=== PATIENT | female | born 1965 | race Caucasian/White ===

== ENCOUNTER 2021-02-25 09:41 | Outpatient (CLI) | payer MEDICARE, OTHER, SELFPAY ==
--- NOTE | ~2021-02-25 | MR_ITS ---
EXAMINATION: MR hip LT wo con DATE: 02/25/2021 11:24 INDICATION: Left hip pain TECHNIQUE: Magnetic resonance imaging (MRI) of the left hip was performed without intravenous contra st. Sequences included full-field axial PD-weighted FS FSE and T1-weighted FSE, coronal of the pelvis with PD-weighted FS FSE, small field of view of the left hip with axial PD-weighted FS FSE, sagitta l PD-weighted FS FSE and coronal PD weighted FS FSE. Additional radial T1-weighted FGR oriented ortho gonal to the acetabular rim were obtained for evaluation of the labrum. COMPARISON: None FINDINGS: Bones/labrum/cartilage: Alignment is normal. Large bone island at the left lesser trochanter. Marrow signal is otherwise norm al with no fracture, avascular necrosis or pathologic marrow replacing process. Small delaminating te ar at the chondral labral junction at the superolateral left acetabular labrum. Articular cartilage a ppears normal. Fluid: Symmetric physiologic amount of fluid within both hip joints. Minimal fluid along the anterior facet of the right greater trochanter consistent with mild right gluteus minimus bursitis. Soft tissues: Normal and symmetric muscle bulk and signal in the pelvis and visualized proximal thighs. The iliopso as, gluteal and proximal hamstring tendons are normal. 1.8 cm left adnexal cyst. Limited evaluation o f visceral organs of the pelvis is otherwise unremarkable. No pathologically enlarged pelvic/inguina l lymphadenopathy. IMPRESSION: 1. Small delaminating tear at the chondral labral junction of the superolateral left acetabular labru m. Reviewed, dictated and finalized at location A. IMPRESSION: 1. Small delaminating tear at the chondral labral junction of the superolateral left acetabular labrum.
--- NOTE | ~2021-02-25 | MR_ITS ---
EXAMINATION: MR lumbar spine wo con DATE: 02/25/2021 11:24 INDICATION: Lumbar disc disease with sciatica. TECHNIQUE: Magnetic resonance imaging (MRI) of the lumbar spine was performed without intravenous con trast. Sequences included sagittal T2-weighted FSE, sagittal T2-weighted FS FSE, sagittal T1-weighted FSE, and axial T2-weighted FSE. COMPARISON: Lumbar spine MRI 10/17/2003 FINDINGS: There is 3 degrees dextrocurvature of lumbar spine. There is 3 mm retrolisthesis of L3 on L 4 and L4 on L5. Vertebral body heights are normal. There is mildly decreased disc height at L2-L3 and L3-L4 and moderately decreased disc height at L4-L5. The distal spinal cord signal intensity is norm al. The conus medullaris is at L2. The following disc levels are specifically discussed: L1-L2: The disc does not extend beyond the endplate margin. There is no facet joint osteoarthritis. T here is no neural foraminal stenosis. There is no central canal stenosis. L2-L3: The disc is bulging. There is mild left facet joint osteoarthritis. There is mild bilateral ne ural foraminal stenosis. There is mild central canal stenosis. L3-L4: The disc is bulging. There is mild bilateral facet joint osteoarthritis. There is mild bilater al neural foraminal stenosis. There is mild central canal stenosis. L4-L5: The disc is bulging and has an annular fissure. There is mild bilateral facet joint osteoarthr itis. There is mild bilateral neural foraminal stenosis. There is mild central canal stenosis. L5-S1: The disc is bulging. There is severe right and moderate left facet joint osteoarthritis. There is mild bilateral neural foraminal stenosis. There is mild central canal stenosis. IMPRESSION: 1. Moderate lumbar spondylosis, worsened from 10/17/2003. Reviewed, dictated and finalized at location A.
== END 2021-02-25 09:42 | disposition home or self-care (01) ==
LOC: ANHIMG 09:52
PROVIDERS: PCP Family Medicine; Visit Provider Family Medicine
DX: M47.896 Other spondylosis, lumbar region (principal)
CPT/HCPCS: 72148; 73721

== ENCOUNTER → 2022-08-25 10:54 | Outpatient (CLI) | payer MEDICARE, OTHER, SELFPAY ==
--- NOTE | ~2022-08-25 | XR_ITS ---
Clinical Indication: Cough PA and lateral views of the chest: Comparison: 08/15/2015 Findings: The lungs are clear, without evidence of focal consolidation or pleural effusion. Cardiome diastinal silhouette is within normal limits. Bones and soft tissues are unremarkable. Impression: Normal chest. Reviewed, dictated and finalized at [facility]. Impression: Normal chest.
== END ==
PROVIDERS: PCP Family Medicine; Visit Provider Family Medicine
DX: R05.9 Cough, unspecified (principal); I10 Essential (primary) hypertension
CPT/HCPCS: 71046

== ENCOUNTER 2023-01-18 10:49 | Outpatient (CLI) | payer MEDICARE, OTHER, SELFPAY ==
--- NOTE | ~2023-01-18 | XR_ITS ---
EXAMINATION: XR abdomen/kub 1V DATE: 01/18/2023 11:05 INDICATION: Kidney stone. TECHNIQUE: A supine view of the abdomen on 2 radiographs was obtained. COMPARISON: Abdomen radiographs 08/27/2014, CT abdomen and pelvis 02/08/2017 FINDINGS: There are no dilated loops of bowel. Surgical clips in the right upper quadrant are likely from cholecystectomy. There are phleboliths in the pelvis. IMPRESSION: 1. No visible urolithiasis. Reviewed, dictated and finalized at location A. IMPRESSION: 1. No visible urolithiasis.
--- NOTE | ~2023-01-18 | US_ITS ---
EXAMINATION: US renal BI DATE: 01/18/2023 11:33 INDICATION: Nephrolithiasis TECHNIQUE: Multiple ultrasound grayscale images of the kidneys were obtained. COMPARISON: None. FINDINGS: The right kidney measures 9.8 x 4.6 x 4.8 cm. The left kidney measures 10.6 x 5.3 x 5.2 cm. The kidne ys demonstrate normal echogenicity. There is no hydronephrosis in either kidney. No stones identifie d. The bladder is normal with bilateral ureteral jets visualized on color Doppler. IMPRESSION: 1. Normal kidneys without hydronephrosis. Reviewed, dictated and finalized at location A.
== END 2023-01-18 10:50 | disposition home or self-care (01) ==
PROVIDERS: PCP Family Medicine; Visit Provider Nurse Practitioner
DX: N20.0 Calculus of kidney (principal)
CPT/HCPCS: 74018; 76775

== ENCOUNTER 2023-05-21 00:24 | Day surgery (SDC) | payer MEDICARE, OTHER, SELFPAY ==
[2023-05-06 11:55] VITALS: BMI 37.2
--- NOTE | 2023-05-19 11:36 | SUR.PREOP ---
Patient called regarding upcoming procedure. Reviewed preop instructions, appointment times, and procedure prep.
[2023-05-21 09:43] VITALS: BP 145/78; PULSE 51; RESP 18; TEMP 36.6; O2SAT 99; BMI 37.8
[2023-05-21] MEDS: LACTATED RINGERS 1,000 ML 150 ML IV CONT (09:54)
--- NOTE | 2023-05-21 09:58 | WPDANESEPPF ---
Anes - Initial Pre Proc Eval Procedure: Operation Date: 05/21/23 10:00 Proposed Procedures p Esophagogastroduodenoscopy - Kaden Woodward MD Date/Time: 05/21/23 09:58 Surgeon: Kaden Woodward MD Pre Op Diagnosis: Idiopathic acute pancreatitis, GERD Patient Data Age: 57 Gender: F Height: 1.52 m Weight: 87.7 kg Last Vital Signs Temp 36.6 C 05/21/23 09:43 Pulse 51 L 05/21/23 09:43 Resp 18 05/21/23 09:43 BP 145/78 H 05/21/23 09:43 Pulse Ox 99 05/21/23 09:43 O2 Del Method Room Air 05/21/23 09:43 Allergies Allergy/AdvReac Type Severity Reaction Status Date / Time naproxen Allergy Unknown Itching Verified 05/21/23 09:41 Home Medications Medication Instructions Recorded Confirmed Type cholestyramine (with sugar) 4 gram 4 ea PO PRN PRN Diarrhea 03/06/21 05/06/23 History oral powder montelukast 10 mg tablet 10 mg PO DAILY 03/06/21 05/06/23 History pantoprazole 40 mg tablet,delayed 40 mg PO QAM 03/06/21 05/06/23 History release benzonatate 200 mg capsule 200 mg PO BID 07/23/22 05/06/23 History diclofenac sodium 1 % topical gel 2 g topical QID 08/25/22 05/06/23 History (Arthritis Pain (diclofenac)) docusate sodium 100 mg capsule 100 mg PO DAILY 08/25/22 05/06/23 History (Stool Softener) meloxicam 15 mg tablet 15 mg PO DAILY 08/25/22 05/06/23 History nadolol 40 mg tablet 40 mg PO DAILY 08/25/22 05/21/23 History albuterol sulfate 90 mcg/actuation 1 inh inhalation Q4H PRN shortness 09/22/22 05/06/23 Rx aerosol inhaler of breath or wheezing #6.7 grams aspirin 81 mg tablet,delayed 81 mg PO DAILY 11/19/22 05/06/23 History release eletriptan 40 mg tablet 40 mg PO ONCE PRN migraine headache 11/19/22 05/06/23 History ergocalciferol (vitamin D2) 1,250 1,250 mcg PO WEEKLY 11/19/22 05/06/23 History mcg (50,000 unit) capsule zolpidem 10 mg tablet 10 mg PO QHS 11/19/22 05/06/23 History amlodipine 10 mg tablet 10 mg PO DAILY #90 tabs 01/12/23 05/06/23 Rx clobetasol 0.05 % topical cream 1 applic topical DAILY #30 grams 02/18/23 05/06/23 Rx triamcinolone acetonide 0.1 % 1 applic topical ONCE #80 grams 02/18/23 05/06/23 Rx topical cream diphenhydramine HCl 25 mg capsule 25 mg PO PRN PRN Allergic Symptoms 05/06/23 05/06/23 History (Benadryl) hydrocodone 5 mg-acetaminophen 325 1 tablet PO HS PRN pain 05/06/23 05/06/23 History mg tablet inulin 2 gram chewable tablet 2 g PO DAILY 05/06/23 05/06/23 History (Fiber Gummies) Patient hx anesthesia problems: none Family hx anesthesia problems: none Results Review: All pre-operative results and documents have been reviewed as part of the pre-operative evaluation. [facility] Past Medical History Medical History Allergic rhinitis, unspecified Arthritis Fibromyalgia Gastro-esophageal reflux disease without esophagitis Granuloma annulare Hypertension IBS (irritable bowel syndrome) Insomnia, unspecified Irregular menstruation, unspecified Irritable bowel syndrome with diarrhea Left buttock pain Lumbar degenerative disc disease Migraine without aura, not intractable, without status migrainosus Obesity, unspecified Plantar fasciitis of right foot Postconcussional syndrome Vitamin D deficiency, unspecified Surgical History Surgical History History of appendectomy History of bunionectomy History of cholecystectomy Family History Family History Other Cerebrovascular accident Diabetes mellitus Family history of Alzheimer's disease Family history of arthritis Family history of lupus erythematosus Family history of malignant neoplasm Family history of migraine headaches Family history of seizure disorder Hypertension Social History Social History Smoking status: Never smoker Second hand tobacco smoke ex
--- NOTE | 2023-05-21 10:12 | PM.HPGS ---
History of Present Illness History of Present Illness Consent: Risks, benefits, and alternatives have been discussed and questions answered. Patient agrees to proceed with procedure. Chief complaint: Idiopathic acute pancreatitis, GERD Narrative: Ivania Meraz is a 57 year old female Presents for EGD. Patient recently seen at [facility] with idiopathic pancreatitis. Because of epigastric pain an EGD is advised. Patient has been maintained on pantoprazole 40mg p.o. daily. Upon holding this medication she has had some dyspepsia and epigastric discomfort. An EGD was requested. Patient is being treated for musculoskeletal disease with diclofenac meloxicam and hydrocortisone. These may also contribute to her discomfort. Family history noncontributory. Review of Systems Review of Systems: Review of systems noncontributory. [facility] Past Medical History Medical History Allergic rhinitis, unspecified Arthritis Fibromyalgia Gastro-esophageal reflux disease without esophagitis Granuloma annulare Hypertension IBS (irritable bowel syndrome) Insomnia, unspecified Irregular menstruation, unspecified Irritable bowel syndrome with diarrhea Left buttock pain Lumbar degenerative disc disease Migraine without aura, not intractable, without status migrainosus Obesity, unspecified Plantar fasciitis of right foot Postconcussional syndrome Vitamin D deficiency, unspecified Surgical History Surgical History History of appendectomy History of bunionectomy History of cholecystectomy Family History Family History Other Cerebrovascular accident Diabetes mellitus Family history of Alzheimer's disease Family history of arthritis Family history of lupus erythematosus Family history of malignant neoplasm Family history of migraine headaches Family history of seizure disorder Hypertension Social History Social History Smoking status: Never smoker Second hand tobacco smoke exposure: No Alcohol intake: never Substance use: current Substance use type: opiates Other substance usage details: hydrocodone-acetaminophen daily hs for pain Lack of Transportation: No Lack of Food: Never True Current Housing: I Have Housing Concerned About Future Housing: No Difficulty Paying Gas/Electric Bills: No Difficulty Paying for Meds: No Currently Unemployed: No Education: Trade/Vocational Certificate Difficulty w/ Childcare or Family Care: No Living arrangements: with family Occupation/Education: unemployed Gender identity (if verbalized by the patient): Female Sexual Orientation (if Verbalized by the Patient): Straight or Heterosexual Spiritual care concerns: No Meds Home Medications and Allergies Home Medications Medication Instructions Recorded Confirmed Type cholestyramine (with sugar) 4 gram 4 ea PO PRN PRN Diarrhea 03/06/21 05/06/23 History oral powder montelukast 10 mg tablet 10 mg PO DAILY 03/06/21 05/06/23 History pantoprazole 40 mg tablet,delayed 40 mg PO QAM 03/06/21 05/06/23 History release benzonatate 200 mg capsule 200 mg PO BID 07/23/22 05/06/23 History diclofenac sodium 1 % topical gel 2 g topical QID 08/25/22 05/06/23 History (Arthritis Pain (diclofenac)) docusate sodium 100 mg capsule 100 mg PO DAILY 08/25/22 05/06/23 History (Stool Softener) meloxicam 15 mg tablet 15 mg PO DAILY 08/25/22 05/06/23 History nadolol 40 mg tablet 40 mg PO DAILY 08/25/22 05/21/23 History albuterol sulfate 90 mcg/actuation 1 inh inhalation Q4H PRN shortness 09/22/22 05/06/23 Rx aerosol inhaler of breath or wheezing #6.7 grams aspirin 81 mg tablet,delayed 81 mg PO DAILY 11/19/22 05/06/23 History release eletriptan 40 mg tablet 40 mg PO ONCE PRN migraine h
--- NOTE | 2023-05-21 10:31 | SUR.OPER ---
INSPECTOR AND CLERK used oral suction during procedure due to excess secretions.
[2023-05-21 10:37] VITALS: BP 84/54; PULSE 55; RESP 17; O2SAT 95
[2023-05-21 10:47] VITALS: BP 103/70; PULSE 53; RESP 15; O2SAT 100
[2023-05-21 11:00] VITALS: BP 117/75; PULSE 50; RESP 15; O2SAT 100
== END 2023-05-21 11:17 | disposition home or self-care (01) ==
PROVIDERS: PCP Family Medicine; Visit Provider Internal Medicine Gastroenterology
PROC: 0DJ08ZZ Inspection of Upper Intestinal Tract, Via Natural or Artificial Opening Endoscopic (ICD-10-PCS; CPT 43235; principal; 2023-05-21 10:00)
DX: D13.1 Benign neoplasm of stomach (principal); K85.00 Idiopathic acute pancreatitis without necrosis or infection; K21.9 Gastro-esophageal reflux disease without esophagitis; I10 Essential (primary) hypertension; E55.9 Vitamin D deficiency, unspecified; M79.7 Fibromyalgia; Z79.891 Long term (current) use of opiate analgesic; E66.9 Obesity, unspecified; Z68.37 Body mass index [BMI] 37.0-37.9, adult; Z79.51 Long term (current) use of inhaled steroids
CPT/HCPCS: 43239; 88305; J2001; J2704; J7120

== ENCOUNTER 2023-07-12 03:18 | Day surgery (SDC) | payer MEDICARE, OTHER, SELFPAY ==
[2023-06-16 15:39] VITALS: BMI 28.1
--- NOTE | 2023-07-09 08:28 | SUR.PREOP ---
Patient called regarding upcoming procedure. Reviewed preop instructions, appointment times, and procedure prep.
--- NOTE | 2023-07-09 15:31 | PM.HPGS ---
History of Present Illness History of Present Illness Consent: Risks, benefits, and alternatives have been discussed and questions answered. Patient agrees to proceed with procedure. Chief complaint: neoplasm screening Narrative: Ivania Meraz is a 57 year old female Who was referred for colon cancer screening. Her last colonoscopy was 7 years ago. Review of Systems Review of Systems: All systems reviewed & are unremarkable except as noted in HPI and below PMFSH Past Medical History Medical History Allergic rhinitis, unspecified Arthritis Fibromyalgia Gastro-esophageal reflux disease without esophagitis Granuloma annulare Hypertension IBS (irritable bowel syndrome) Insomnia, unspecified Irregular menstruation, unspecified Irritable bowel syndrome with diarrhea Left buttock pain Lumbar degenerative disc disease Migraine without aura, not intractable, without status migrainosus Obesity, unspecified Plantar fasciitis of right foot Postconcussional syndrome Vitamin D deficiency, unspecified Surgical History Surgical History History of appendectomy History of bunionectomy History of cholecystectomy Family History Family History Other Cerebrovascular accident Diabetes mellitus Family history of Alzheimer's disease Family history of arthritis Family history of lupus erythematosus Family history of malignant neoplasm Family history of migraine headaches Family history of seizure disorder Hypertension Social History Social History Smoking status: Never smoker Second hand tobacco smoke exposure: No Alcohol intake: never Substance use: current Substance use type: opiates Other substance usage details: hydrocodone 5mg-acetaminiphen daily at for pain Lack of Transportation: No Lack of Food: Never True Current Housing: I Have Housing Concerned About Future Housing: No Difficulty Paying Gas/Electric Bills: No Difficulty Paying for Meds: No Currently Unemployed: No Education: Trade/Vocational Certificate Difficulty w/ Childcare or Family Care: No Living arrangements: with family Occupation/Education: unemployed Gender identity (if verbalized by the patient): Female Sexual Orientation (if Verbalized by the Patient): Straight or Heterosexual Spiritual care concerns: No Meds Home Medications and Allergies Home Medications Medication Instructions Recorded Confirmed Type montelukast 10 mg tablet 10 mg PO DAILY 03/06/21 06/30/23 History pantoprazole 40 mg tablet,delayed 40 mg PO QAM 03/06/21 06/30/23 History release diclofenac sodium 1 % topical gel 2 g topical QID 08/25/22 06/30/23 History (Arthritis Pain (diclofenac)) docusate sodium 100 mg capsule 100 mg PO DAILY 08/25/22 06/30/23 History (Stool Softener) meloxicam 15 mg tablet 15 mg PO DAILY 08/25/22 06/30/23 History nadolol 40 mg tablet 40 mg PO DAILY 08/25/22 06/30/23 History albuterol sulfate 90 mcg/actuation 1 inh inhalation Q4H PRN shortness 09/22/22 06/30/23 Rx aerosol inhaler of breath or wheezing #6.7 grams aspirin 81 mg tablet,delayed 81 mg PO DAILY 11/19/22 06/30/23 History release eletriptan 40 mg tablet 40 mg PO ONCE PRN migraine headache 11/19/22 06/30/23 History ergocalciferol (vitamin D2) 1,250 1,250 mcg PO WEEKLY 11/19/22 06/30/23 History mcg (50,000 unit) capsule zolpidem 10 mg tablet 10 mg PO QHS 11/19/22 06/30/23 History amlodipine 10 mg tablet 10 mg PO DAILY #90 tabs 01/12/23 06/30/23 Rx clobetasol 0.05 % topical cream 1 applic topical DAILY #30 grams 02/18/23 06/30/23 Rx triamcinolone acetonide 0.1 % 1 applic topical ONCE #80 grams 02/18/23 06/30/23 Rx topical cream diphenhydramine HCl 25 mg capsule 25 mg PO PRN PRN Allergic Symptoms 05/06/23 06/30/23 Hi
[2023-07-12 09:58] VITALS: BP 122/70; PULSE 61; RESP 20; TEMP 36.2; O2SAT 98; BMI 28.9
[2023-07-12] MEDS: LACTATED RINGERS 1,000 ML 150 ML IV CONT (10:19)
--- NOTE | 2023-07-12 10:56 | WPDANESEPPF ---
Anes - Initial Pre Proc Eval Procedure: Operation Date: 07/12/23 12:30 Proposed Procedures p Screening Colonoscopy - Diallo Pittman MD Date/Time: 07/12/23 10:56 Surgeon: Diallo Pittman MD Pre Op Diagnosis: neoplasm screening Patient Data Age: 57 Gender: F Height: 1.73 m Weight: 86.3 kg Last Vital Signs Temp 97.1 F L 07/12/23 09:58 Pulse 61 07/12/23 09:58 Resp 20 07/12/23 09:58 BP 122/70 07/12/23 09:58 Pulse Ox 98 07/12/23 09:58 O2 Del Method Room Air 07/12/23 09:58 Allergies Allergy/AdvReac Type Severity Reaction Status Date / Time naproxen Allergy Unknown Itching Verified 07/12/23 09:56 Home Medications Medication Instructions Recorded Confirmed Type montelukast 10 mg tablet 10 mg PO DAILY 03/06/21 06/30/23 History pantoprazole 40 mg tablet,delayed 40 mg PO QAM 03/06/21 06/30/23 History release diclofenac sodium 1 % topical gel 2 g topical QID 08/25/22 06/30/23 History (Arthritis Pain (diclofenac)) docusate sodium 100 mg capsule 100 mg PO DAILY 08/25/22 06/30/23 History (Stool Softener) meloxicam 15 mg tablet 15 mg PO DAILY 08/25/22 06/30/23 History nadolol 40 mg tablet 40 mg PO DAILY 08/25/22 06/30/23 History albuterol sulfate 90 mcg/actuation 1 inh inhalation Q4H PRN shortness 09/22/22 06/30/23 Rx aerosol inhaler of breath or wheezing #6.7 grams aspirin 81 mg tablet,delayed 81 mg PO DAILY 11/19/22 06/30/23 History release eletriptan 40 mg tablet 40 mg PO ONCE PRN migraine headache 11/19/22 06/30/23 History ergocalciferol (vitamin D2) 1,250 1,250 mcg PO WEEKLY 11/19/22 06/30/23 History mcg (50,000 unit) capsule zolpidem 10 mg tablet 10 mg PO QHS 11/19/22 06/30/23 History amlodipine 10 mg tablet 10 mg PO DAILY #90 tabs 01/12/23 06/30/23 Rx clobetasol 0.05 % topical cream 1 applic topical DAILY #30 grams 02/18/23 06/30/23 Rx triamcinolone acetonide 0.1 % 1 applic topical ONCE #80 grams 02/18/23 06/30/23 Rx topical cream diphenhydramine HCl 25 mg capsule 25 mg PO PRN PRN Allergic Symptoms 05/06/23 06/30/23 History (Benadryl) inulin 2 gram chewable tablet 2 g PO DAILY 05/06/23 06/30/23 History (Fiber Gummies) hydrocodone 5 mg-acetaminophen 325 1 tablet PO HS PRN pain #60 tabs 06/10/23 06/30/23 Rx mg tablet sodium,potassium,mag sulfates 17.5 See Rx Instructions PO .COMPLEX 06/10/23 06/30/23 Rx gram-3.13 gram-1.6 gram oral soln #354 mL (Suprep Bowel Prep Kit) benzonatate 200 mg capsule 200 mg PO TID #270 caps 06/15/23 06/30/23 Rx fluconazole 150 mg tablet 150 mg PO .COMPLEX #2 tabs 06/15/23 06/30/23 Rx vibegron 75 mg tablet (Gemtesa) 75 mg PO DAILY 06/30/23 06/30/23 History Patient hx anesthesia problems: none Family hx anesthesia problems: none Results Review: All pre-operative results and documents have been reviewed as part of the pre-operative evaluation. [facility] Past Medical History Medical History (Updated 07/09/23 @ 15:31 by Diallo Pittman MD) Allergic rhinitis, unspecified Arthritis Fibromyalgia Gastro-esophageal reflux disease without esophagitis Granuloma annulare Hypertension IBS (irritable bowel syndrome) Insomnia, unspecified Irregular menstruation, unspecified Irritable bowel syndrome with diarrhea Left buttock pain Lumbar degenerative disc disease Migraine without aura, not intractable, without status migrainosus Obesity, unspecified Plantar fasciitis of right foot Postconcussional syndrome Vitamin D deficiency, unspecified Surgical History Surgical History History of appendectomy History of bunionectomy History of cholecystectomy Family History Family History Other Cerebrovascular accident Diabetes mellitus Family history of Alzheimer's disease Family history of arthritis Family history of lupus erythematosus Family history of malignant neoplasm Family history of migraine headaches Family
[2023-07-12 11:34] VITALS: BP 105/65; PULSE 58; RESP 19; O2SAT 96
[2023-07-12 11:44] VITALS: BP 85/48; PULSE 57; RESP 16; O2SAT 99
[2023-07-12] MEDS: DICYCLOMINE HCL INJ 20 MG/2 ML VIAL IM (11:53)
[2023-07-12 12:00] VITALS: BP 124/80; PULSE 57; RESP 36; O2SAT 100
== END 2023-07-12 12:31 | disposition home or self-care (01) ==
PROVIDERS: PCP Family Medicine; Visit Provider Internal Medicine Gastroenterology
PROC: 0DJD8ZZ Inspection of Lower Intestinal Tract, Via Natural or Artificial Opening Endoscopic (ICD-10-PCS; CPT 45378; principal; 2023-07-12 12:30)
DX: Z12.11 Encounter for screening for malignant neoplasm of colon (principal); D12.5 Benign neoplasm of sigmoid colon; K57.30 Diverticulosis of large intestine without perforation or abscess without bleeding; I10 Essential (primary) hypertension; K58.9 Irritable bowel syndrome, unspecified; G47.00 Insomnia, unspecified; E55.9 Vitamin D deficiency, unspecified; J30.9 Allergic rhinitis, unspecified; K21.9 Gastro-esophageal reflux disease without esophagitis; L92.0 Granuloma annulare; E66.9 Obesity, unspecified; Z68.28 Body mass index [BMI] 28.0-28.9, adult; Z79.51 Long term (current) use of inhaled steroids; Z79.4 Long term (current) use of insulin; Z79.891 Long term (current) use of opiate analgesic; Z90.49 Acquired absence of other specified parts of digestive tract; Z82.49 Family history of ischemic heart disease and other diseases of the circulatory system; Z80.9 Family history of malignant neoplasm, unspecified
CPT/HCPCS: 45385; 88305; J0500; J2704; J7120

== ENCOUNTER 2024-01-07 12:25 | Outpatient (CLI) | payer MEDICARE, OTHER, SELFPAY ==
--- NOTE | ~2024-01-07 | XR_ITS ---
EXAMINATION: XR abdomen/kub 1V DATE: 01/07/2024 12:45 INDICATION: Kidney stones. TECHNIQUE: A supine view of the abdomen on 2 radiographs was obtained. COMPARISON: CT abdomen and pelvis 02/08/2017, abdomen radiograph 11/18/2022 FINDINGS: There are no dilated loops of bowel. There are phleboliths in the pelvis and left ovarian v ein. Surgical clips in the right upper quadrant are likely from cholecystectomy. IMPRESSION: 1. No visible urolithiasis. Reviewed, dictated and finalized at location A. IMPRESSION: 1. No visible urolithiasis.
== END 2024-01-07 12:26 | disposition home or self-care (01) ==
PROVIDERS: PCP Family Medicine; Visit Provider Urology
DX: N20.0 Calculus of kidney (principal)
CPT/HCPCS: 74018